=== PATIENT | female | born 2000 | race Caucasian/White ===

== ENCOUNTER 2024-07-05 23:33 | Emergency (ER) | payer SELFPAY ==
[2024-07-06] MEDS: Ketorolac 30 MG/ML SDV IVPUSH ONE (01:43)
[2024-07-06] MEDS: Ondansetron 4 MG/2 ML SDV IVPUSH ONE (01:43)
[2024-07-06 01:56] LABS: BASOPHILS ABSOLUTE AUTO 0.04 K/uL (0.00-0.20); BASOPHILS PERCENT AUTO 0.2 % (0.0-1.0); EOSINOPHILS ABSOLUTE AUTO 0.09 K/uL (0.00-0.45); EOSINOPHILS PERCENT AUTO 0.5 % (0.0-6.0); HEMATOCRIT 39.3 % (37.0-47.0); HEMOGLOBIN 13.1 g/dL (12.0-16.0); IMMATURE GRAN ABSOLUTE AUTO 0.08 K/uL (0.00-0.05); IMMATURE GRAN PERCENT AUTO 0.5 % (0.0-0.4); LYMPHOCYTES ABSOLUTE AUTO 3.71 K/uL (1.00-4.80); LYMPHOCYTES PERCENT AUTO 21.3 % (24.0-44.0); MEAN CORPUSCULAR HEMOGLOBIN 26.6 pg (28.0-32.0); MEAN CORPUSCULAR HGB CONC 33.3 g/dL (32.0-36.0); MEAN CORPUSCULAR VOLUME 79.7 fL (83.0-99.0); MEAN PLATELET VOLUME 10.1 fL (9.4-12.3); MONOCYTES ABSOLUTE AUTO 0.84 K/uL (0.00-0.80); MONOCYTES PERCENT AUTO 4.8 % (0.0-8.0); NEUTROPHILS ABSOLUTE AUTO 12.66 K/uL (1.80-7.70); NEUTROPHILS PERCENT AUTO 72.7 % (41.0-71.0); PLATELET COUNT,PLT 376 K/uL (150-400); RED BLOOD CELL COUNT 4.93 M/uL (4.10-5.30); WHITE BLOOD CELL COUNT,WBC 17.42 K/uL (3.9-11.3)
[2024-07-06 02:06] LABS: A/G RATIO 1.2 (0.9-1.6); ALBUMIN 4.1 g/dL (3.4-5.0); BILIRUBIN TOTAL 0.3 mg/dL (0.2-1.0); CALCIUM 8.9 mg/dL (8.5-10.1); CARBON DIOXIDE,CO2 24.5 mmol/L (21.0-32.0); CREATININE 0.8 mg/dL (0.6-1.0); EST CRCL DRUG DOSING (CG) 91.24 mL/min; POTASSIUM,K 3.8 mmol/L (3.5-5.1); PROTEIN TOTAL,TP 7.6 g/dL (6.4-8.2)
[2024-07-06] MEDS: Metoclopramide 10 MG/2 ML SDV IVPUSH ONE (02:46)
[2024-07-06 04:47] LABS: APPEARANCE,URINE CLOUDY; COLOR,URINE YELLOW; GLUCOSE,URINE NEGATIVE (NEGATIVE); KETONES,URINE 15 mg/dL (NEGATIVE); LEUKOCYTE ESTERASE,URINE NEGATIVE (NEGATIVE); NITRITE,URINE NEGATIVE (NEGATIVE); OCCULT BLOOD,URINE LARGE (NEGATIVE); PROTEIN,URINE 30 mg/dL (NEGATIVE); UROBILINOGEN,URINE 0.2 EU/dL (<2.0)
[2024-07-06 04:49] LABS: BILIRUBIN,URINE SMALL (NEGATIVE)
[2024-07-06 04:55] LABS: BACTERIA,URINE MANY (NEGATIVE); EPITHELIAL CELLS,URINE MANY (NONE-FEW)
[2024-07-06 04:56] LABS: MUCUS,URINE MANY (NONE-MOD)
== END 2024-07-06 04:23 | disposition home or self-care (01) ==
LOC: MW.ED 23:33
DX: R11.2 Nausea with vomiting, unspecified (principal); R10.30 Lower abdominal pain, unspecified; F17.210 Nicotine dependence, cigarettes, uncomplicated
CPT/HCPCS: 36415; 80053; 81001; 81025; 85025; 96374; 96375; 99284; J1885; J2405; J2765